=== PATIENT | female | born 1975 | race African-American/Black ===

== ENCOUNTER → 2019-05-21 | Day surgery (SDC) | payer BC ==
--- NOTE | 2019-05-27 16:48 | PATH ---
Cytology Non-Gynecological Report Patient Name: ANNA MARIE LOVE [facility]. Rec. #: [id number] /Age/Gender: 1975 (Age: 44) / F Account: [id number] Location: [facility] Taken: 05/21/2019 Received: 05/22/2019 Reported: 05/27/2019 Physicians: Nancy Cifuentes M.D. Specimen(s) Received BREAST, LEFT, NIPPLE/SUBAREOLA, FINE NEEDLE ASPIRATION Clinical History Left breast cyst Final Diagnosis BREAST, LEFT, NIPPLE/SUBAREOLA, FINE NEEDLE ASPIRATION: SATISFACTORY FOR EVALUATION. NO MALIGNANT CELLS IDENTIFIED. CYSTIC BREAST LESION WITH APOCRINE METAPLASIA. APOCRINE METAPLASTIC CELLS IN THE BACKGROUND OF PROTEINACEOUS DEBRIS. Electronically Signed Sabiha Dumont M.D. Gross Description Approximately 60 cc of cloudy gonzalez-white fluid received fixed in 50% alcohol. One cytofunnel prepared and Pap stained. One cellblock prepared.
== END | disposition home or self-care (01) ==
LOC: JMAMMO-SUR 09:55 → JRADUS-SUR 09:55
PROVIDERS: ATTEND Family Medicine
PROC: 0H9U3ZX Drainage of Left Breast, Percutaneous Approach, Diagnostic (ICD-10-PCS; principal; 2019-05-21)
DX: N60.02 Solitary cyst of left breast (principal)
CPT/HCPCS: 76942-TC; 87899; 88173; 88305-TC